=== PATIENT | male | born 1990 | race Caucasian/White ===

== ENCOUNTER 2018-02-24 15:15 | Emergency (ER) | payer SELFPAY ==
[2018-02-24] MEDS ORDERED: ROCEPHIN IM ONE (18:37)
[2018-02-24] MEDS ORDERED: XYLOCAINE 1% MPF 5 mL INFILTRATI ONE (18:37)
[2018-02-24] MEDS ORDERED: ZITHROMAX PO ONE (18:37)
--- NOTE | 2018-02-24 18:39 | Emergency Department Report ---
ED Male HPI - General Chief complaint: Urogenital-Male Stated complaint: STD Time Seen by Provider: 02/24/18 18:29 Source: patient Mode of arrival: Ambulatory Limitations: No Limitations - History of Present Illness Initial comments: 27-year-old male presents with complaint of penile discharge. Complains of being exposed to chlamydia and gonorrhea. Awake alert and oriented 3. Denies fevers chills nausea vomiting testicular pain or swelling. MD Complaint: penile discharge Onset/Timin -: week(s) Location: penis Severity: mild Quality: burning Worsens with: urination discharge - Related Data Previous Rx's Medication Instructions Recorded Last Taken Type Cyclobenzaprine [Flexeril] 10 mg PO TID PRN #15 tablet 07/06/15 Unknown Rx Ibuprofen [Motrin] 800 mg PO Q8HR PRN #15 tablet 07/06/15 Unknown Rx Allergies Allergy/AdvReac Type Severity Reaction Status Date / Time No Known Allergies Allergy Verified 07/05/15 21:28 ED Review of Systems ROS: Stated complaint: STD Other details as noted in HPI Constitutional: denies: chills, fever Eyes: denies: eye pain, eye discharge, vision change ENT: denies: ear pain, throat pain Respiratory: denies: cough, shortness of breath, wheezing Cardiovascular: denies: chest pain, palpitations Endocrine: no symptoms reported Gastrointestinal: denies: abdominal pain, nausea, diarrhea Genitourinary: frequency, discharge. denies: urgency, dysuria Musculoskeletal: denies: back pain, joint swelling, arthralgia Skin: denies: rash, lesions Neurological: denies: headache, weakness, paresthesias Psychiatric: denies: anxiety, depression Hematological/Lymphatic: denies: easy bleeding, easy bruising ED Past Medical Hx - Past Medical History Previous Medical History?: No - Surgical History Past Surgical History?: No - Social History Smoking Status: Never Smoker Substance Use Type: Alcohol - Medications Home Medications: Home Medications Medication Instructions Recorded Confirmed Last Taken Type Cyclobenzaprine [Flexeril] 10 mg PO TID PRN #15 tablet 07/06/15 Unknown Rx Ibuprofen [Motrin] 800 mg PO Q8HR PRN #15 tablet 07/06/15 Unknown Rx ED Physical Exam - General Limitations: No Limitations General appearance: alert, in no apparent distress - Head Head exam: Present: atraumatic, normocephalic - Eye Eye exam: Present: normal appearance, PERRL, EOMI - ENT ENT exam: Present: mucous membranes moist - Neck Neck exam: Present: normal inspection - Respiratory Respiratory exam: Present: normal lung sounds bilaterally. Absent: respiratory distress - Cardiovascular Cardiovascular Exam: Present: regular rate, normal rhythm. Absent: systolic murmur, diastolic murmur, rubs, gallop - GI/Abdominal GI/Abdominal exam: Present: soft, normal bowel sounds - Rectal Rectal exam: Present: deferred - exam: Present: urethral discharge - Extremities Exam Extremities exam: Present: normal inspection - Back Exam Back exam: Present: normal inspection - Neurological Exam Neurological exam: Present: alert, oriented X3 - Psychiatric Psychiatric exam: Present: normal affect, normal mood - Skin Skin exam: Present: warm, dry, intact, normal color. 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 ED Disposition Clinical Impression: Urethritis Disposition: DC-01 TO HOME OR SELFCARE Is pt being admited?: No Does the pt Need Aspirin: No Condition: Stable Instructions: Nonspecific Urethritis in Men (ED) Referrals: [facility] [Provider Group] - 3-5 Days Forms: STI Treatment and Prevention Time of Disposition: 18:38
[2018-02-24 18:52] VITALS: BP 118/62
== END 2018-02-24 18:50 | disposition home or self-care (01) ==
LOC: ED 15:15
DX: N34.2 Other urethritis (principal)
CPT/HCPCS: 96372; 99282; J0696

== ENCOUNTER 2019-06-16 12:42 | Emergency (ER) | payer OTHER ==
[2019-06-16] MEDS ORDERED: BOOSTRIX IM ONE (14:06)
[2019-06-16] MEDS ORDERED: MARCAINE 0.25% INFILTRATI ONE ×2 (14:33→14:56)
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
[2019-06-16] MEDS ORDERED: POLYSPORIN TP ONE (15:40)
[2019-06-16 16:25] VITALS: BP 108/59
[2019-06-16] MEDS ORDERED: TRIPLE ANTIBIOTIC TP ONE (16:48)
== END 2019-06-16 16:45 | disposition home or self-care (01) ==
LOC: ED 12:42 → EEVIPCON 12:42 → ED 16:45
DX: T75.4XXA Electrocution, initial encounter (principal); M79.645 Pain in left finger(s); W86.8XXA Exposure to other electric current, initial encounter; Y93.89 Activity, other specified; Y92.89 Other specified places as the place of occurrence of the external cause; Y99.8 Other external cause status
CPT/HCPCS: 90471; 90715; 93005; 93010; A6250

== ENCOUNTER 2020-08-29 01:49 | Emergency (ER) | payer SELFPAY ==
[2020-08-29 02:18] VITALS: BP 140/66
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
== END 2020-08-29 04:02 | disposition home or self-care (01) ==
LOC: ED 01:49
DX: M79.10 Myalgia, unspecified site (principal); Z79.899 Other long term (current) drug therapy; V49.49XA Driver injured in collision with other motor vehicles in traffic accident, initial encounter; Y93.89 Activity, other specified; Y92.488 Other paved roadways as the place of occurrence of the external cause; Y99.8 Other external cause status
CPT/HCPCS: 99282